=== PATIENT | male | born 1950 | race Caucasian/White ===

== ENCOUNTER → 2016-09-17 | Outpatient (CLI) | payer MEDICARE, OTHER | END | disposition home or self-care (01) | LOC: RAD.S 08:18 | DX: M54.41 Lumbago with sciatica, right side (principal); Z53.9 Procedure and treatment not carried out, unspecified reason ==

== ENCOUNTER → 2016-09-18 | Outpatient (CLI) | payer MEDICARE, OTHER | END | disposition home or self-care (01) | LOC: RAD.S 13:18 | DX: M54.5 Low back pain (principal); M51.86 Other intervertebral disc disorders, lumbar region ==

== ENCOUNTER 2016-12-12 16:23 | Emergency (ER) | payer MEDICARE, OTHER ==
--- NOTE | 2016-12-17 23:43 | ER ---
ADMIT: 12/12/2016 RM/LOC: ER [facility] MR#: [id number] [address] [id number] [facility] [address] [address] [place] [address] Emergency Room Report SEX: M AGE: 66 : 1950 DATE: 12/12/2016 Please refer to my T-sheet for complete H and P. Briefly, the patient is a 66-year-old, who comes in with a stick jammed into his left ear. He is anticoagulated. It happened just prior to arrival because of large laceration and a lot of bleeding. He came in immediately. His tetanus shot is unknown. PHYSICAL EXAMINATION: VITAL SIGNS: His blood pressure 147/89, pulse 168, respirations 18, temperature 99, and sat 96%. GENERAL: He has blood all over him. HEENT: He has a 4 cm ear laceration in the inner part of the external auricle. It is actively bleeding. Otherwise, his exam is all essentially normal. EMERGENCY DEPARTMENT COURSE: I injected the area with lidocaine with epi. Held pressure. I was able to get the bleeding to stop, but not to suture it. I sutured using 5-0 interrupted Vicryl. A total of 5 stitches were placed. The approximation was fair. Hemostasis however was achieved. We did hold the pressure on it. We cleansed him up and watched him for a while. He did not have a recurrent bleeding. We had a long discussion, and he was ready for discharge. ASSESSMENT: 1. A 4 cm ear laceration closed in the Emergency Department as above by myself. 2. He is anticoagulated for atrial fibrillation. I had a discussion about the risk of anticoagulation in holding it for couple of days. They wanted to hold it a couple of days after all the discussion and will follow up with Dr. Whitehead. PLAN: Hold Coumadin x2 days. Keep pressure on the ear. Return if it starts bleeding and they cannot stop it. Keep clean and dry. Raghu Colon MD/ charlee JOB #: [id number] CC: Raghu Colon MD, Attending Physician Rodolfo Whitehead MD, Family Physician
== END 2016-12-12 18:09 | disposition home or self-care (01) ==
LOC: ER 16:23
PROC: 0HQ3XZZ Repair Left Ear Skin, External Approach (ICD-10-PCS; principal; 2016-12-12)
DX: S01.312A Laceration without foreign body of left ear, initial encounter (principal); I48.91 Unspecified atrial fibrillation; X58.XXXA Exposure to other specified factors, initial encounter